=== PATIENT | male | born 1955 | race Caucasian/White ===

== ENCOUNTER 2019-02-20 10:28 | Day surgery (SDC) | payer OTHER ==
[~2019-02-20] VITALS: Ht 177.8 cm; Wt 136.1 kg
[~2019-02-20 10:28] MED LIST: AMLODIPINE-ATO1 EAC4; ASPI325; Advil200 M1; Bisoprolol Fuma10 MG; GLUCOSAMINE CH1 EAC1; HYDCHL25; MELA3; UBID10
--- NOTE | 2019-02-20 11:26 | NUR ---
02/20/19 1126 Katrina James WHEN ASKED PT. IF HE HAD ANY PAIN, PT. VERBALIZES HAVING PAIN IN BILAT WRISTS. PT. DOESN'T KNOW WHY HE HAS PAIN, STATES "I THINK IT IS A JOINT PROBLEM, THINK IT IS GOUT."
== END 2019-02-20 13:15 | disposition home or self-care (01) ==
LOC: ORSCSDS 10:28
PROVIDERS: Internal Medicine Gastroenterology
PROC: 0DBM8ZX Excision of Descending Colon, Via Natural or Artificial Opening Endoscopic, Diagnostic (ICD-10-PCS; principal; 2019-02-20 12:00)
DX: Z12.11 Encounter for screening for malignant neoplasm of colon (principal); D12.4 Benign neoplasm of descending colon; K64.4 Residual hemorrhoidal skin tags; K57.30 Diverticulosis of large intestine without perforation or abscess without bleeding; K64.8 Other hemorrhoids; Z86.010 Personal history of colon polyps; Z80.0 Family history of malignant neoplasm of digestive organs; I10 Essential (primary) hypertension; Z79.82 Long term (current) use of aspirin; Z79.899 Other long term (current) drug therapy
CPT/HCPCS: 88305; J0330; J0461; J2250; J2405; J2704; J7120